=== PATIENT | female | born 1940 | race Caucasian/White ===

== ENCOUNTER 2019-03-28 12:25 | Inpatient (IN) ==
[2019-03-28 12:36] VITALS: BMI 23.6
--- NOTE | 2019-03-28 12:52 | DR.GENAD ---
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 SHE IS RUNNING FEVER. SHE IS COUGHING PRODUCTIVE WITH THICK SPUTUM. COUGH IS WORSE WHEN SHE IS LYING DOWN. PATIENT IS HAVING PLEURITIC CHEST PAIN 5/10, RADIATING TO THE BACK. PATIENR IS ON HOME OXYGEN 2L/M. Complaint/Symptoms Chief Complaint Doctors Comments: INCREASING SOB AND GENERALIZE WEAKNESS TIMES 3 WEEKS. Chief Complaint:: pt stated she has been short of breath and very weak for around [address] rodriguez this morning and they told her to come to our er Nurses notes reviewed Nurses Notes Review: Yes Source History Provided: Patient and Family Member Mode of Arrival Mode of Arrival: Ambulatory Timing Onset of Chief Complaint: 03/07/19 Duration Duration: Weeks Severity Severity: Moderate Modifying Factors Worsens:: LYING DOWN Improves:: SITTING UP. Associated Signs and Symptoms Associated Signs and Symptoms: WEAKNESS, ATAXIA. Other History Other History: HISTORY SCOLIOSIS. PMH PMH Past Medical History: Yes Past Medical History: Dyslipidemia and Hypothyroidism Past Surgical History: Yes Surgical History: Appendectomy, Cholecystectomy, Hysterectomy, Ortho Surgery and Thyroidectomy Family History History of Family Medical Conditions: No Social History Does patient currently use any type of tobacco product: No Have you used tobacco products in the last 12 months: No Type of Tobacco Use: None Does any household member use tobacco: No Alcohol Use: None Do you use any recreational Drugs:: No Lives With: Alone Lives Where: Home infectious screening In the last 2 months have you had wt loss of >10#?: NO Have you had fever, night sweats or hemotysis?: No Have you traveled outside the country in the last 6 months?: No Isolation: Standard ROS Review of Systems Constitutional: See HPI, Fever, Weakness, Fatigue and Loss of Appetite Eyes: No Symptoms Reported and See HPI; negative Eye Pain, Blurred Vision and Photophobia ENTM: See HPI, Ear Pain, Nose Discharge and Nose Congestion; negative Throat Pain Respiratoy: See HPI, Productive Cough, Short of Breath and Wheezing Cardiovascular: See HPI and Chest Pain; negative Edema and Palpitations Gastrointestinal/Abdominal: See HPI and Nausea; negative Abdominal Pain, Constipation, Diarrhea and Vomiting Genitourinary: No Symptoms Reported and See HPI; negative Dysuria, Frequency and Hematuria Neurological: See HPI, Weakness and Problems Walking (ATAXIA.); negative Headache and Dizziness Musculoskeletal: No Symptoms Reported and See HPI; negative Back Pain and Muscle Pain Integumentary: See HPI and Dryness; negative Change in Color, Rash and Juandice Hematologic/Lymphatic: No Symptoms Reported and See HPI; negative Easy Bleeding, Easy Bruising and Swollen Glands Endocrine: No Symptoms Reported, See HPI, Increased Thirst and Decreased Appetite; negative Increased Urine Psychiatric: No Symptoms Reported and See HPI All Other Systems: Reviewed and Negative PE Vital Signs Vitals: Temperature 97.7 F Pulse Rate [Left Brachial] 92 Pulse Rate 83 Respiratory Rate 20 Blood Pressure [Left Arm] 130/64 Blood Pressure 154/85 O2 Sat by Pulse Oximetry 94 General Limitations: No Limitations General Appearance: Alert and In Distress Head Head Exam: Normal Inspection, Atraumatic and Normocephalic Eyes Eye exam: Normal Appearance, PERRL and EOMI; negative Scleral Icterus and Conjunctival Injection ENT ENT Exam: Normal Exam, Normal Oropharynx and Normal External Ear Exam; negative TM's Normal Bilaterally External Ear Exam: Normal External Inspection; negative Mastoid Tenderness, Pain with Movement and External Tenderness TM/Canal Exam: Bilateral: Normal Nose Exam: negative Sinus Tenderness, Nasal Deviation and Septal Hematoma Mouth Exam: negative Lip Swelling and Tongue Swelling Throat Exam: Tonsillar Erythema; negative Tonsillomegaly and Tonsillar Exudate Neck Neck Exam: Normal Inspection and Trachea Midline; negative Tenderness and Lymphadenopathy Chest Chest Inspection: Normal Inspection and Symmetric Chest Wall Rise; negative Tenderness Respiratory Respiratory Exam: Respiratory Distress; negative Accessory Muscle Use and Chest Wall Tenderness Respiratory Exam: Bilateral: Wheezing and Bilateral: Rhonchi, Upper: Wheezing and Upper: Rhonchi and Lower: Wheezing and Lower: Rhonchi Abdominal Exam Abdominal Exam: Normal Inspection, Normal Bowel Sounds and Soft; negative Tende rness Extremities Extremities Exam: Normal Inspection, Full ROM and Normal Capillary Refill; negative Tenderness, Edema and Calf Tenderness Back Back Exam: Normal Inspection; negative Tenderness, (R) CVA Tenderness, (L) CVA Tenderness, Paraspinal Tenderness and Vertebral Tenderness Neurologic Neurological Exam: Alert, Oriented X3 and CN II-XII Intact; negative Motor Sensory Deficit Psychiatric Psychiatric Exam: Normal Affect and Normal Mood Skin Skin Exam: Warm, Dry, Intact and Normal Color MDM Additional Information Additional Information Obtained From: Family Differential Diagnosis Differential Diagnosis: PNEUMONIA, COPD EXACERBATION, BRONCHITIS, SCOLIOSIS WITH PULMONARY COMPRESS COURSE Treatment Treatment: SEE ORDERS. Consultation Consultation Comments: DISCUSS PATIENT WITH DR. ZHANG. HE WILL ADMIT PATIENT. Education/Counseling Education/Counseling: Patient and Family Educated On: Diagnosis ROR Labs Reviewed Laboratory Results Reviewed?: Yes Result Diagrams: 04/01/19 04:41 04/01/19 04:41 Laboratory: 03/28/19 13:40 Blood Blood Culture - Final 03/28/19 13:33 Blood Blood Culture - Final 03/28/19 15:10 Sputum - Expectorated Sputum Sputum Culture - Final 03/28/19 15:10 Sputum - Expectorated Sputum - Final WBC 9.0 X10^3/uL (3.6-10.0) 04/01/19 04:41 RBC 3.87 X10^6/uL (3.5-5.4) 04/01/19 04:41 Hgb 11.9 g/dL (12.0-16.0) L 04/01/19 04:41 Hct 36.1 % (36.0-47.0) 04/01/19 04:41 MCV 93.4 fL (80.0-100.0) 04/01/19 04:41 MCH 30.7 pg (27.0-34.0) 04/01/19 04:41 MCHC 32.9 g/dL (33.0-35.0) L 04/01/19 04:41 RDW 13.1 % (11.6-16.5) 04/01/19 04:41 Plt Count 111 X10^3/uL (150.0-450.0) L 04/01/19 04:41 MPV 11.9 fL (7.4-11.0) H 04/01/19 04:41 Neut % (Auto) 52.4 % (42.0-75.0) 04/01/19 04:41 Lymph % (Auto) 38.8 % (21.0-51.0) 04/01/19 04:41 [place] % (Auto) 6.9 % (0.0-13.0) 04/01/19 04:41 Eos % (Auto) 0.7 % (0.9-2.9) L 04/01/19 04:41 Baso % (Auto) 1.2 % (0.2-1.0) H 04/01/19 04:41 Neut # (Auto) 4.7 x10^3/uL (2.2-4.8) 04/01/19 04:41 Lymph # (Auto) 3.5 X10^3/uL (1.3-2.9) H 04/01/19 04:41 [place] # (Auto) 0.6 x10^3/uL (0.3-0.8) 04/01/19 04:41 Eos # (Auto) 0.1 x10^3/uL (0.0-0.2) 04/01/19 04:41 Baso # (Auto) 0.1 X10^3/uL (0.0-0.1) 04/01/19 04:41 Absolute Nucleated RBC 0.0 /100WBC 04/01/19 04:41 Sample Site Right radial 03/29/19 11:22 ABG pH 7.350 (7.35-7.45) 03/29/19 11:22 ABG pCO2 73.0 mmHg (35.0-45.0) H* 03/29/19 11:22 ABG pO2 82.0 mmHg (80.0-100.0) 03/29/19 11:22 ABG HCO3 40.3 mmol/L (22-26) H* 03/29/19 11:22 ABG O2 Saturation 95.0 % (90-100) 03/29/19 11:22 ABG Base Excess 11.8 mmol/L (-2.0-2.0) H 03/29/19 11:22 Eduardo Test Positive 03/29/19 11:22 A-a Gradient 26.0 mmHg 03/29/19 11:22 FiO2 28.0 03/29/19 11:22 Blood Gas Comments 03/29/19 11:22 Sodium 140 mmol/L (136-145) 04/01/19 04:41 Corrected Sodium TNP 04/01/19 04:41 Potassium 3.8 mmol/L (3.5-5.1) 04/01/19 04:41 Chloride 101 mmol/L (98-107) 04/01/19 04:41 Carbon Dioxide 36.3 mmol/L (21-32) H 04/01/19 04:41 BUN 18 mg/dL (7-18) 04/01/19 04:41 Creatinine 0.48 mg/dL (0.55-1.02) L 04/01/19 04:41 Est GFR (MDRD) Af Amer > 60 (>60) 04/01/19 04:41 Est GFR (MDRD) Non-Af > 60 (>60) 04/01/19 04:41 Glucose 97 mg/dL (65-99) 04/01/19 04:41 Calcium 7.4 mg/dL (8.5-10.1) L 04/01/19 04:41 Corrected Calcium 8.3 mg/dL (8.5-10.1) L 04/01/19 04:41 Magnesium 2.0 mg/dL (1.7-2.9) 04/01/19 04:41 Total Bilirubin 0.20 mg/dL (0.2-1.0) 04/01/19 04:41 AST 14 Units/L (15-37) L 04/01/19 04:41 ALT 14 Units/L (12-78) 04/01/19 04:41 Alkaline Phosphatase 35 Units/L (46-116) L 04/01/19 04:41 Creatine Kinase 43 Units/L (26-192) 03/30/19 02:20 CK-MB (CK-2) 1.1 ng/mL (0-4.0) 03/30/19 02:20 CK/CKMB % Calc 2.6 % (<4) 03/30/19 02:20 Troponin I < 0.02 ng/mL (0-1.5) 03/30/19 02:20 Total Protein 6.3 g/dL (6.4-8.2) L 04/01/19 04:41 Albumin 2.9 g/dL (3.4-5.0) L 04/01/19 04:41 Globulin 3.4 g/dL (2.5-4.5) 04/01/19 04:41 Albumin/Globulin Ratio 0.9 Ratio (1.1-2.1) L 04/01/19 04:41 Specimen Type Clean catch urine 03/28/19 14:00 Urine Color Yellow (YELLOW) 03/28/19 14:00 Urine Appearance Clear (CLEAR) 03/28/19 14:00 Urine pH 6.5 (5.0 - 8.0) 03/28/19 14:00 Ur Specific [place] 1.015 (1.000-1.030) 03/28/19 14:00 Urine Protein Negative (NEGATIVE) 03/28/19 14:00 Urine Glucose (UA) Negative (NEGATIVE) 03/28/19 14:00 Urine Ketones Negative (NEGATIVE) 03/28/19 14:00 Urine Occult Blood Negative (NEGATIVE) 03/28/19 14:00 Urine Nitrite Negative (NEGATIVE) 03/28/19 14:00 Urine Bilirubin Negative (NEGATIVE) 03/28/19 14:00 Urine Urobilinogen Normal (NORMAL) 03/28/19 14:00 Ur Leukocyte Esterase 1+ (NEGATIVE) 03/28/19 14:00 Urine RBC None seen /HPF (0-3) 03/28/19 14:00 Urine WBC 0-2 /HPF (0-5) 03/28/19 14:00 Ur Squamous Epith Cells Few /HPF (NEGATIVE) 03/28/19 14:00 Urine Bacteria Negative /HPF (NEGATIVE) 03/28/19 14:00 Ur Culture Indicated? No/not indicated 03/28/19 14:00 XRAY XRAY Findings: REPORT NOTED AND DISCUSS WITH PATIENT AND HER SON. EKG Rate: 80 Elfrida: RAD Rhythm: NSR and PVCs Hypertrophy: LAE ST: Nonsp Opioid Opioid Risk Tool Age (Yonatan box if 16-45): No Total: 0 Total Score Risk Category: Low Risk Copyright: [facility] predicting aberrant behaviors Diagnosis Discharge Problem: Acute respiratory distress LLL pneumonia Qualifiers: Pneumonia type: due to unspecified organism Qualified Code(s): J18.1 - Lobar pn eumonia, unspecified organism Instructions Instructions: Incentive Spirometer How to Use a Nebulizer, Adult Home Oxygen Use, Adult Acute Respiratory Failure, Adult Community-Acquired Pneumonia, Adult, [id number]
[2019-03-28 13:51] LABS: BASOPHILS # (AUTO) 0.1 X10^3/uL (0.0-0.1); BASOPHILS % (AUTO) 0.8 % (0.2-1.0); EOSINOPHILS # (AUTO) 0.1 x10^3/uL (0.0-0.2); EOSINOPHILS % (AUTO) 1.2 % (0.9-2.9); HEMATOCRIT 41.7 % (36.0-47.0); HEMOGLOBIN 13.8 g/dL (12.0-16.0); LYMPHOCYTES # (AUTO) 3.3 X10^3/uL (1.3-2.9); LYMPHOCYTES % (AUTO) 37.8 % (21.0-51.0); MEAN CORPUSCULAR HEMOGLOBIN 30.8 pg (27.0-34.0); MEAN CORPUSCULAR HGB CONC 33.1 g/dL (33.0-35.0); MEAN CORPUSCULAR VOLUME 93.1 fL (80.0-100.0); MEAN PLATELET VOLUME 10.5 fL (7.4-11.0); MONOCYTES # (AUTO) 0.6 x10^3/uL (0.3-0.8); MONOCYTES % (AUTO) 6.7 % (0.0-13.0); NEUTROPHILS # (AUTO) 4.6 x10^3/uL (2.2-4.8); NEUTROPHILS % (AUTO) 53.5 % (42.0-75.0); PLATELET COUNT 142 X10^3/uL (150.0-450.0); RED BLOOD COUNT 4.48 X10^6/uL (3.5-5.4); RED CELL DISTRIBUTION WIDTH 12.9 % (11.6-16.5); WHITE BLOOD COUNT 8.6 X10^3/uL (3.6-10.0)
--- NOTE | 2019-03-28 14:03 | RAD ---
HISTORY: Ataxia, shortness of breath. Prior history of hypothyroidism. Study: Single-view chest Comparison: No priors Findings: Is severe thoracolumbar scoliosis present. 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 Trachea is midline. There is cardiomegaly with atherosclerotic calcification uncoiling the aortic arch. Right lung is clear. There is left-sided pleural effusion with atelectasis or infiltrate in the left lower lobe. IMPRESSION: Cardiomegaly with atelectasis or infiltrate in the left lower lobe. There is a left-sided pleural effusion. Reported By:
[2019-03-28 14:07] LABS: BLOOD UREA NITROGEN 18 mg/dL (7-18); CARBON DIOXIDE 33.7 mmol/L (21-32); CHLORIDE 101 mmol/L (98-107); CREATININE 0.52 mg/dL (0.55-1.02); SODIUM 140 mmol/L (136-145); TROPONIN I < 0.02 ng/mL (0-1.5); eGFR NON BLACK RACES > 60 (>60)
[2019-03-28 14:11] LABS: ALANINE AMINOTRANSFERASE 8 Units/L (12-78); ALBUMIN 3.7 g/dL (3.4-5.0); ALKALINE PHOSPHATASE 47 Units/L (46-116); ASPARTATE AMINO TRANSFERASE 18 Units/L (15-37); CKMB % 3.5 % (<4); CREATINE KINASE 29 Units/L (26-192); CREATINE KINASE MB < 1.0 ng/mL (0-4.0); TOTAL PROTEIN 7.8 g/dL (6.4-8.2)
[2019-03-28 14:27] LABS: BILIRUBIN,URINE NEGATIVE (NEGATIVE); BLOOD/HEMOGLOBIN,URINE NEGATIVE (NEGATIVE); GLUCOSE, URINE NEGATIVE (NEGATIVE); KETONES,URINE NEGATIVE (NEGATIVE); LEUKOCYTE ESTERASE ,URINE 1+ (NEGATIVE); NITRITES,URINE NEGATIVE (NEGATIVE); PH,URINE 6.5 (5.0 - 8.0); PROTEIN,URINE NEGATIVE (NEGATIVE); UROBILINOGEN,URINE NORMAL (NORMAL)
[2019-03-28] MEDS ORDERED: ROCEPHIN VIAL 1 GRAM IVP ONE (14:30)
--- NOTE | 2019-03-28 14:31 | CT ---
CT brain without contrast Indication: Ataxia with shortness of breath Comparison: None available Technique: Multiple axial images of the brain were obtained from the skull base to the vertex without administration of IV contrast. Dose reduction techniques including automated exposure control (AEC) and adjustment of mA and kV were utilized. Findings: No acute intraparenchymal hemorrhage or mass can be identified. No extra-axial fluid collections are seen. No alteration in the attenuation of the brain parenchyma can be identified to suggest acute or subacute ischemic change. The ventricular system is symmetric and nondilated. The extracranial structures are grossly unremarkable. IMPRESSION: 1. No acute intracranial process is identified. Reported By:
[2019-03-28] MEDS ORDERED: SALINE 3% 15 ML NEB TX ONE (14:35)
[2019-03-28 14:36] LABS: APPEARANCE,URINE CLEAR (CLEAR); BACTERIA,URINE NEGATIVE /HPF (NEGATIVE); COLOR,URINE YELLOW (YELLOW); RBC,URINE NONE SEEN /HPF (0-3); SQUAMOUS EPITHELIAL CELL,UR FEW /HPF (NEGATIVE)
[2019-03-28] MEDS ORDERED: SALINE 3% 15 ML NEB TX NEB ONE (14:40)
[2019-03-28] MEDS ORDERED: ROCEPHIN VIAL 1 GRAM ONE (14:46)
[2019-03-28] MEDS: XOPENEX 1.25 MG/3 ML NEBULE NEB SCH (18:40)
[2019-03-28] MEDS ORDERED: DESONIDE TP SCH (21:00)
[2019-03-28] MEDS: ASTELIN NASAL SPRAY ENOSTRIL SCH (21:49)
[2019-03-28] MEDS: NORCO 5/325 MG TAB PO SCH (21:50)
[2019-03-28] MEDS: PROTONIX TAB 40 MG PO SCH (21:52)
[2019-03-28] MEDS ORDERED: NS 500 ML IV 500 ML ONE (21:59)
[2019-03-28] MEDS: LEVAQUIN PREMIX IV 500 MG 500 MG/100 ML BAG IV SCH (22:00)
[2019-03-29] MEDS: XOPENEX 1.25 MG/3 ML NEBULE NEB SCH ×4 (01:25→17:18)
[2019-03-29 05:20] LABS: BASOPHILS # (AUTO) 0.1 X10^3/uL (0.0-0.1); BASOPHILS % (AUTO) 0.8 % (0.2-1.0); EOSINOPHILS # (AUTO) 0.2 x10^3/uL (0.0-0.2); EOSINOPHILS % (AUTO) 2.8 % (0.9-2.9); HEMATOCRIT 38.9 % (36.0-47.0); HEMOGLOBIN 12.9 g/dL (12.0-16.0); LYMPHOCYTES % (AUTO) 38.9 % (21.0-51.0); MEAN CORPUSCULAR HEMOGLOBIN 30.9 pg (27.0-34.0); MEAN CORPUSCULAR HGB CONC 33.3 g/dL (33.0-35.0); MEAN CORPUSCULAR VOLUME 92.7 fL (80.0-100.0); MEAN PLATELET VOLUME 11.8 fL (7.4-11.0); MONOCYTES # (AUTO) 0.7 x10^3/uL (0.3-0.8); MONOCYTES % (AUTO) 8.7 % (0.0-13.0); NEUTROPHILS # (AUTO) 3.8 x10^3/uL (2.2-4.8); NEUTROPHILS % (AUTO) 48.8 % (42.0-75.0); PLATELET COUNT 128 X10^3/uL (150.0-450.0); RED BLOOD COUNT 4.19 X10^6/uL (3.5-5.4); RED CELL DISTRIBUTION WIDTH 12.8 % (11.6-16.5); WHITE BLOOD COUNT 7.8 X10^3/uL (3.6-10.0)
[2019-03-29 05:21] LABS: ALANINE AMINOTRANSFERASE 6 Units/L (12-78); ALBUMIN 3.2 g/dL (3.4-5.0); ALKALINE PHOSPHATASE 39 Units/L (46-116); ASPARTATE AMINO TRANSFERASE 15 Units/L (15-37); BLOOD UREA NITROGEN 17 mg/dL (7-18); CALCIUM 8.1 mg/dL (8.5-10.1); CARBON DIOXIDE 33.5 mmol/L (21-32); CHLORIDE 100 mmol/L (98-107); COR CA(FOR HYPOALB) 8.7 mg/dL (8.5-10.1); CREATININE 0.54 mg/dL (0.55-1.02); SODIUM 140 mmol/L (136-145); eGFR NON BLACK RACES > 60 (>60)
[2019-03-29] MEDS ORDERED: ASTELIN NASAL SPRAY ONE (08:14)
[2019-03-29] MEDS: ROCEPHIN VIAL 1 GRAM IVP SCH (08:32)
[2019-03-29] MEDS: NORCO 5/325 MG TAB PO SCH ×2 (08:32→21:39)
[2019-03-29] MEDS: ZOFRAN TAB 4 MG PO SCH (08:32)
[2019-03-29] MEDS: ASTELIN NASAL SPRAY ENOSTRIL SCH ×2 (08:33→21:41)
[2019-03-29] MEDS ORDERED: LASIX IVP SCH (10:00)
[2019-03-29] MEDS: NS 1000 ML 1,000 ML IV SCH (11:22)
[2019-03-29 11:28] LABS: ABG BASE EXCESS 11.8 mmol/L (-2.0-2.0)
[2019-03-29 11:30] LABS: ABG ALLEN TEST POSITIVE; ABG HCO3 40.3 mmol/L (22-26)
--- NOTE | 2019-03-29 13:40 | DR.H&P ---
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 SHE IS RUNNING FEVER. SHE IS COUGHING PRODUCTIVE WITH THICK SPUTUM. COUGH IS WORSE WHEN SHE IS LYING DOWN. PATIENT IS HAVING PLEURITIC CHEST PAIN 5/10, RADIATING TO THE BACK. PATIENT IS ON HOME OXYGEN 2L/M. - Past Medical History Past Medical History: CVA (2017), Dyslipidemia, Hypothyroidism Additional Medical History: bronchiectasis - Past Surgical History Surgical History: Appendectomy, Cholecystectomy, Hysterectomy - Social History Does patient currently use any type of tobacco product: No Have you used tobacco products in the last 12 months: No Type of Tobacco Use: None Does any household member use tobacco: No Alcohol Use: None Drug Use: None - Medications Home Medications: No Known Drug Allergies Allergy (Verified 03/28/19 12:26) CONTINUE taking the following medications azelastine 2 spray INTRANASAL BID 03/28/19 [History] desonide 1 applic TOPICAL HS 03/28/19 [History] doxycycline hyclate 100 mg PO BID 03/28/19 [History] hydrocodone-acetaminophen 1 tab PO BID 03/28/19 [History] ketoconazole 1 applic TOPICAL DAILY 03/28/19 [History] levothyroxine 25 mcg PO DAILY 03/28/19 [History] metronidazole 1 applic TOPICAL HS 03/28/19 [History] ondansetron HCl 4 mg PO DAILY 03/28/19 [History] pantoprazole 40 mg PO HS 03/28/19 [History] - Review of Systems Constitutional: Fever, Weakness Eyes: No Symptoms Reported ENT: No Symptoms Reported Respiratory: Cough, Shortness of Breath, SOB with Excertion, Pleuritic Pain, Wheezing Cardiovascular: No Symptoms Reported. denies: Edema Gastrointestinal: No Symptoms Reported Genitourinary: No Symptoms Reported Musculoskeletal: Back Pain Skin: No Symptoms Reported Neurological: No Symptoms Reported - Physical Exam Vital Signs: Temperature 97.9 F Pulse Rate [Left Brachial] 113 Pulse Rate 81 Respiratory Rate 14 Blood Pressure [Left Arm] 134/79 Blood Pressure 154/85 O2 Sat by Pulse Oximetry 96 Oriented: Normal Eyes: Normal Ear: Normal Nose: Normal Throat: Normal Respiratory: RLL Diminished, LML Diminished, LLL Diminished, LLL Rub Cardiovascular: Normal. negative: Edema : Normal Auscultation: Bowel Sounds: Normal Palpation: Normal Tenderness: Normal Skin: Decreased Turgur Musculoskeletal: Back:Thoracic, Back:Lumbar, Tender, Deformity Psychiatric: Anxiety Affect: Anxious Speech Pattern: Clear, Appropriate - Assessment/Plan (1) Acute respiratory distress Status: Acute Plan: ADMIT, CE AND EKG ON ADMISSION. CXR ON ADMISSION, SUPPLEMENTAL O2, RESP CONSULT. IV ATBX THERAPY, GENTLE IV HYDRATION. VERIFY HOME MEDICATION, BP AND CONTINOUS CARDIC MONITORING. SPUTUM CULTURE, BLOOD CULTURE (2) LLL pneumonia Qualifiers: Pneumonia type: due to unspecified organism Qualified Code(s): J18.1 - Lobar pneumonia, unspecified organism Status: Acute (3) Thoracolumbar back pain Status: Acute (4) Scoliosis Status: Acute (5) CVD (cerebrovascular disease) Status: Acute - Allergies Allergies/Adverse Reactions: Allergies Allergy/AdvReac Type Severity Reaction Status Date / Time No Known Drug Allergies Allergy Verified 03/28/19 12:26
--- NOTE | 2019-03-29 13:46 | PCM.PROG ---
Progress Note - Progress Note for Day of Date of Exam: 03/29/19 - Subjective Subjective: 79 WF ER ADMISSION ON 03/28 WITH FEVER AND RESPIRATORY DISTRESS, CHEST PAIN WITH CXR CONFIRMING PNEUMONIA. PT WAS STARTED ON IV ANTIBIOTICS. PT IS ON SUPPLEMENTAL O2 WITH CONTINUED SOB AT REST. ABG ORDERED FOR THIS AND CT CHEST WITH CONTRAST. PT ENCOURAGED TO USE IS, PULMONARY TOILETING. HOME MEDICATIONS REVIEWED AND RESUMED, IV SOLU MEDROL STARTED. LABS AND XRAYS REIVEWED WITH PT AND HER FAMILY - Past Medical Family Social History Past Med/Fam/Surg Hx: No changes since H&P Allergies: Allergies No Known Drug Allergies Allergy (Verified 03/28/19 12:26) - Review of Systems ROS: No change since H&P - Vital Signs and I&O's Vital Signs: Temperature 97.9 F Pulse Rate [Left Brachial] 113 Pulse Rate 81 Respiratory Rate 14 Blood Pressure [Left Arm] 134/79 Blood Pressure 154/85 O2 Sat by Pulse Oximetry 96 Intake and Output: Intake & Output 03/27/19 03/28/19 03/29/19 03/30/19 11:59 11:59 11:59 11:59 Intake Total 370 / 370 Balance 370 / 370 - Physical Exam Oriented: Normal Eyes: Normal Ear: Normal Nose: Normal Throat: Normal Respiratory: Diminished, Wheezes Cardiovascular: Normal. negative: Edema : Normal Auscultation: Bowel Sounds: Normal Tenderness: Normal Skin: Decreased Turgur Musculoskeletal: Back:Thoracic, Back:Lumbar, Tender, Deformity Psychiatric: Anxiety Affect: Anxious Speech Pattern: Clear, Appropriate - Laboratory and Diagnostics Result Diagrams: 03/29/19 04:42 03/29/19 04:42 Labs: 03/28/19 15:10 Sputum - Expectorated Sputum Sputum Culture - Preliminary 03/28/19 15:10 Sputum - Expectorated Sputum - Final Laboratory WBC 7.8 X10^3/uL (3.6-10.0) 03/29/19 04:42 RBC 4.19 X10^6/uL (3.5-5.4) 03/29/19 04:42 Hgb 12.9 g/dL (12.0-16.0) 03/29/19 04:42 Hct 38.9 % (36.0-47.0) 03/29/19 04:42 MCV 92.7 fL (80.0-100.0) 03/29/19 04:42 MCH 30.9 pg (27.0-34.0) 03/29/19 04:42 MCHC 33.3 g/dL (33.0-35.0) 03/29/19 04:42 RDW 12.8 % (11.6-16.5) 03/29/19 04:42 Plt Count 128 X10^3/uL (150.0-450.0) L 03/29/19 04:42 MPV 11.8 fL (7.4-11.0) H 03/29/19 04:42 Neut % (Auto) 48.8 % (42.0-75.0) 03/29/19 04:42 Lymph % (Auto) 38.9 % (21.0-51.0) 03/29/19 04:42 [place] % (Auto) 8.7 % (0.0-13.0) 03/29/19 04:42 Eos % (Auto) 2.8 % (0.9-2.9) 03/29/19 04:42 Baso % (Auto) 0.8 % (0.2-1.0) 03/29/19 04:42 Neut # (Auto) 3.8 x10^3/uL (2.2-4.8) 03/29/19 04:42 Lymph # (Auto) 3.0 X10^3/uL (1.3-2.9) H 03/29/19 04:42 [place] # (Auto) 0.7 x10^3/uL (0.3-0.8) 03/29/19 04:42 Eos # (Auto) 0.2 x10^3/uL (0.0-0.2) 03/29/19 04:42 Baso # (Auto) 0.1 X10^3/uL (0.0-0.1) 03/29/19 04:42 Absolute Nucleated RBC 0.0 /100WBC 03/29/19 04:42 Sample Site Right radial 03/29/19 11:22 ABG pH 7.350 (7.35-7.45) 03/29/19 11:22 ABG pCO2 73.0 mmHg (35.0-45.0) H* 03/29/19 11:22 ABG pO2 82.0 mmHg (80.0-100.0) 03/29/19 11:22 ABG HCO3 40.3 mmol/L (22-26) H* 03/29/19 11:22 ABG O2 Saturation 95.0 % (90-100) 03/29/19 11:22 ABG Base Excess 11.8 mmol/L (-2.0-2.0) H 03/29/19 11:22 Eduardo Test Positive 03/29/19 11:22 A-a Gradient 26.0 mmHg 03/29/19 11:22 FiO2 28.0 03/29/19 11:22 Blood Gas Comments 03/29/19 11:22 Sodium 140 mmol/L (136-145) 03/29/19 04:42 Corrected Sodium TNP 03/29/19 04:42 Potassium 4.0 mmol/L (3.5-5.1) 03/29/19 04:42 Chloride 100 mmol/L (98-107) 03/29/19 04:42 Carbon Dioxide 33.5 mmol/L (21-32) H 03/29/19 04:42 BUN 17 mg/dL (7-18) 03/29/19 04:42 Creatinine 0.54 mg/dL (0.55-1.02) L 03/29/19 04:42 Est GFR (MDRD) Af Amer > 60 (>60) 03/29/19 04:42 Est GFR (MDRD) Non-Af > 60 (>60) 03/29/19 04:42 Glucose 104 mg/dL (65-99) H 03/29/19 04:42 Calcium 8.1 mg/dL (8.5-10.1) L 03/29/19 04:42 Corrected Calcium 8.7 mg/dL (8.5-10.1) 03/29/19 04:42 Total Bilirubin 0.40 mg/dL (0.2-1.0) 03/29/19 04:42 AST 15 Units/L (15-37) 03/29/19 04:42 ALT 6 Units/L (12-78) L 03/29/19 04:42 Alkaline Phosphatase 39 Units/L (46-116) L 03/29/19 04:42 Creatine Kinase 29 Units/L (26-192) 03/28/19 13:33 CK-MB (CK-2) < 1.0 ng/mL (0-4.0) 03/28/19 13:33 CK/CKMB % Calc 3.5 % (<4) 03/28/19 13:33 Troponin I < 0.02 ng/mL (0-1.5) 03/28/19 13:33 Total Protein 7.0 g/dL (6.4-8.2) 03/29/19 04:42 Albumin 3.2 g/dL (3.4-5.0) L 03/29/19 04:42 Globulin 3.8 g/dL (2.5-4.5) 03/29/19 04:42 Albumin/Globulin Ratio 0.8 Ratio (1.1-2.1) L 03/29/19 04:42 Specimen Type Clean catch urine 03/28/19 14:00 Urine Color Yellow (YELLOW) 03/28/19 14:00 Urine Appearance Clear (CLEAR) 03/28/19 14:00 Urine pH 6.5 (5.0 - 8.0) 03/28/19 14:00 Ur Specific [place] 1.015 (1.000-1.030) 03/28/19 14:00 Urine Protein Negative (NEGATIVE) 03/28/19 14:00 Urine Glucose (UA) Negative (NEGATIVE) 03/28/19 14:00 Urine Ketones Negative (NEGATIVE) 03/28/19 14:00 Urine Occult Blood Negative (NEGATIVE) 03/28/19 14:00 Urine Nitrite Negative (NEGATIVE) 03/28/19 14:00 Urine Bilirubin Negative (NEGATIVE) 03/28/19 14:00 Urine Urobilinogen Normal (NORMAL) 03/28/19 14:00 Ur Leukocyte Esterase 1+ (NEGATIVE) 03/28/19 14:00 Urine RBC None seen /HPF (0-3) 03/28/19 14:00 Urine WBC 0-2 /HPF (0-5) 03/28/19 14:00 Ur Squamous Epith Cells Few /HPF (NEGATIVE) 03/28/19 14:00 Urine Bacteria Negative /HPF (NEGATIVE) 03/28/19 14:00 Ur Culture Indicated? No/not indicated 03/28/19 14:00 - Plan (1) Acute respiratory distress Status: Acute Plan: CE AND EKG ON ADMISSION, REPEAT TODAY. CXR ON ADMISSION, CT CHEST TODAY. SUPPLEMENTAL O2, RESP CONSULT. IV ATBX THERAPY, GENTLE IV HYDRATION. VERIFY HOME MEDICATION, BP AND CONTINOUS CARDIC MONITORING. SPUTUM CULTURE, BLOOD CULTURE (2) LLL pneumonia Status: Acute Qualifiers: Pneumonia type: due to unspecified organism Qualified Code(s): J18.1 - Lobar pneumonia, unspecified organism (3) Thoracolumbar back pain Status: Acute (4) Scoliosis Status: Acute (5) CVD (cerebrovascular disease) Status: Acute
[2019-03-29] MEDS ORDERED: NS 100 ML IV + SPIKE MINIBAG* 100 ML ONE (13:51)
[2019-03-29 14:14] LABS: CKMB % 2.8 % (<4); CREATINE KINASE 36 Units/L (26-192); CREATINE KINASE MB < 1.0 ng/mL (0-4.0); MAGNESIUM 1.6 mg/dL (1.7-2.9); TROPONIN I < 0.02 ng/mL (0-1.5)
[2019-03-29] MEDS ORDERED: MAGNESIUM SULFATE 1 GRAM/100 mL PREMIX 2 G/200 ML BAG IV ONE (14:52)
[2019-03-29] MEDS: SOLU-Medrol 125 MG VIAL IVP SCH ×2 (14:54→21:40)
[2019-03-29] MEDS: MAGNESIUM SULFATE 1 GRAM/100 mL PREMIX 1 GM/100 ML BAG IV PRN ×2 (14:54→18:11)
--- NOTE | 2019-03-29 14:59 | CT ---
HISTORY: Respiratory distress, left lower lobe pneumonia Study: CT chest with contrast Comparison: Radiograph 03/28/2019 Technique: Multiple axial images of the chest were obtained from the thoracic inlet to the upper abdomen after the administration of IV contrast. Dose reduction techniques including Automated Exposure Control (AEC) and adjustment of mA and kV were utilized. Findings: There is severe thoracic dextroscoliosis with single Crawley carmelita on the left that is partially visualized on this scan. There is associated rib deformity associated with the scoliosis. There is a large hiatal hernia with partial intrathoracic stomach. There is bibasilar subsegmental atelectasis, worse on the left. No effusion or pneumothorax identified. Airways are patent. There is mild cardiomegaly. There is calcified plaque within the aorta. No acute findings identified in the upper abdomen. Gallbladder is removed. IMPRESSION: 1. Bibasilar subsegmental atelectasis greater on the left. No effusion or pneumothorax identified. 2. Severe thoracic dextroscoliosis. 3. Mild cardiomegaly. Reported By:
[2019-03-29] MEDS: SYNTHROID 25 mcg TAB PO SCH (15:42)
[2019-03-29 20:13] LABS: CKMB % 2.6 % (<4); CREATINE KINASE 39 Units/L (26-192); CREATINE KINASE MB < 1.0 ng/mL (0-4.0); TROPONIN I < 0.02 ng/mL (0-1.5)
[2019-03-29] MEDS: PROTONIX TAB 40 MG PO SCH (21:38)
[2019-03-29] MEDS: LEVAQUIN PREMIX IV 500 MG 500 MG/100 ML BAG IV SCH (21:40)
[2019-03-30 02:31] LABS: BASOPHILS % (AUTO) 0.2 % (0.2-1.0); HEMATOCRIT 40.8 % (36.0-47.0); HEMOGLOBIN 13.5 g/dL (12.0-16.0); LYMPHOCYTES # (AUTO) 1.5 X10^3/uL (1.3-2.9); LYMPHOCYTES % (AUTO) 22.3 % (21.0-51.0); MEAN CORPUSCULAR HEMOGLOBIN 30.6 pg (27.0-34.0); MEAN CORPUSCULAR VOLUME 92.8 fL (80.0-100.0); MEAN PLATELET VOLUME 10.7 fL (7.4-11.0); MONOCYTES # (AUTO) 0.1 x10^3/uL (0.3-0.8); MONOCYTES % (AUTO) 0.9 % (0.0-13.0); NEUTROPHILS # (AUTO) 5.1 x10^3/uL (2.2-4.8); NEUTROPHILS % (AUTO) 76.6 % (42.0-75.0); PLATELET COUNT 137 X10^3/uL (150.0-450.0); RED CELL DISTRIBUTION WIDTH 12.6 % (11.6-16.5); WHITE BLOOD COUNT 6.6 X10^3/uL (3.6-10.0)
[2019-03-30 02:44] LABS: ALANINE AMINOTRANSFERASE 9 Units/L (12-78); ALBUMIN 3.5 g/dL (3.4-5.0); ALKALINE PHOSPHATASE 43 Units/L (46-116); ASPARTATE AMINO TRANSFERASE 15 Units/L (15-37); BLOOD UREA NITROGEN 19 mg/dL (7-18); CALCIUM 7.9 mg/dL (8.5-10.1); CARBON DIOXIDE 34.7 mmol/L (21-32); CHLORIDE 98 mmol/L (98-107); COR NA(FOR HYPERGLY) 138 mmol/L (136-145); CREATININE 0.72 mg/dL (0.55-1.02); MAGNESIUM 2.3 mg/dL (1.7-2.9); SODIUM 136 mmol/L (136-145); TOTAL PROTEIN 7.7 g/dL (6.4-8.2); eGFR NON BLACK RACES > 60 (>60)
[2019-03-30 02:56] LABS: CKMB % 2.6 % (<4); CREATINE KINASE 43 Units/L (26-192); CREATINE KINASE MB 1.1 ng/mL (0-4.0); TROPONIN I < 0.02 ng/mL (0-1.5)
[2019-03-30] MEDS: XOPENEX 1.25 MG/3 ML NEBULE NEB SCH ×5 (03:18→19:14)
[2019-03-30] MEDS: PULMICORT NEB TX 0.5 MG NEB SCH ×4 (03:18→20:09)
[2019-03-30] MEDS: SOLU-Medrol 125 MG VIAL IVP SCH (05:56)
[2019-03-30] MEDS: NORCO 5/325 MG TAB PO SCH ×2 (09:38→21:00)
[2019-03-30] MEDS: ROCEPHIN VIAL 1 GRAM IVP SCH (09:39)
[2019-03-30] MEDS: ASTELIN NASAL SPRAY ENOSTRIL SCH ×2 (09:39→21:00)
[2019-03-30] MEDS: ZOFRAN TAB 4 MG PO SCH (09:39)
[2019-03-30] MEDS ORDERED: PROTONIX TAB 40 MG ONE (09:46)
[2019-03-30] MEDS: PROTONIX TAB 40 MG PO SCH (09:46)
[2019-03-30] MEDS: NS 1000 ML 1,000 ML IV SCH (10:52)
[2019-03-30] MEDS: SYNTHROID 25 mcg TAB PO SCH (16:56)
[2019-03-30] MEDS: LEVAQUIN PREMIX IV 500 MG 500 MG/100 ML BAG IV SCH (21:00)
[2019-03-31] MEDS: XOPENEX 1.25 MG/3 ML NEBULE NEB SCH ×4 (00:17→16:30)
[2019-03-31 05:19] LABS: BASOPHILS # (AUTO) 0.2 X10^3/uL (0.0-0.1); LYMPHOCYTES # (AUTO) 2.7 X10^3/uL (1.3-2.9); LYMPHOCYTES % (AUTO) 16.2 % (21.0-51.0); MEAN CORPUSCULAR HEMOGLOBIN 30.3 pg (27.0-34.0); MEAN CORPUSCULAR HGB CONC 32.4 g/dL (33.0-35.0); MEAN CORPUSCULAR VOLUME 93.6 fL (80.0-100.0); MEAN PLATELET VOLUME 12.3 fL (7.4-11.0); MONOCYTES # (AUTO) 0.9 x10^3/uL (0.3-0.8); MONOCYTES % (AUTO) 5.6 % (0.0-13.0); NEUTROPHILS # (AUTO) 12.7 x10^3/uL (2.2-4.8); NEUTROPHILS % (AUTO) 77.2 % (42.0-75.0); PLATELET COUNT 128 X10^3/uL (150.0-450.0); RED BLOOD COUNT 3.96 X10^6/uL (3.5-5.4)
[2019-03-31 05:26] LABS: ALANINE AMINOTRANSFERASE 11 Units/L (12-78); ALBUMIN 3.2 g/dL (3.4-5.0); ALKALINE PHOSPHATASE 35 Units/L (46-116); ASPARTATE AMINO TRANSFERASE 13 Units/L (15-37); BLOOD UREA NITROGEN 20 mg/dL (7-18); CALCIUM 7.9 mg/dL (8.5-10.1); CARBON DIOXIDE 33.6 mmol/L (21-32); CHLORIDE 101 mmol/L (98-107); COR CA(FOR HYPOALB) 8.5 mg/dL (8.5-10.1); MAGNESIUM 2.2 mg/dL (1.7-2.9); SODIUM 139 mmol/L (136-145); TOTAL PROTEIN 6.7 g/dL (6.4-8.2); eGFR NON BLACK RACES > 60 (>60)
[2019-03-31 06:01] LABS: WHITE BLOOD COUNT 16.4 X10^3/uL (3.6-10.0)
[2019-03-31] MEDS: NS 1000 ML 1,000 ML IV SCH ×2 (06:28→11:12)
[2019-03-31] MEDS: PULMICORT NEB TX 0.5 MG NEB SCH ×2 (08:20→20:32)
[2019-03-31] MEDS: ROCEPHIN VIAL 1 GRAM IVP SCH (08:22)
[2019-03-31] MEDS: PROTONIX TAB 40 MG PO SCH (08:23)
[2019-03-31] MEDS: NORCO 5/325 MG TAB PO SCH ×3 (08:23→20:42)
[2019-03-31] MEDS: ZOFRAN TAB 4 MG PO SCH ×2 (08:24→08:58)
[2019-03-31] MEDS: ASTELIN NASAL SPRAY ENOSTRIL SCH ×2 (08:24→20:52)
[2019-03-31] MEDS ORDERED: PHARMACY CONSULT - DOSE _____ XX SCH (10:00)
[2019-03-31] MEDS ORDERED: MILK OF MAGNESIA PO PRN (10:05)
[2019-03-31] MEDS ORDERED: COLACE CAP 100 MG PO PRN (10:05)
[2019-03-31] MEDS: LOVENOX INJ 40 MG SYR SC SCH (13:51)
--- NOTE | 2019-03-31 14:34 | RAD ---
HISTORY: Pneumonia. Study: Two-view chest Comparison: 03/28/2019. CT scan chest done 03/29/2019. Findings: A single left-sided Crawley rods present. Severe thoracolumbar scoliosis is again seen. Trachea is midline. Heart size is normal. There is atherosclerotic calcification and uncoiling of arch. Improved aeration is noted with still some atelectasis or infiltrate in the left lung base. Both costophrenic angles are blunted, but no effusion was noted on the CT in the findings represent chronic pleural thickening in these areas. Large hiatal hernia was seen on the left at chest CT. This is not well delineated radiographically. IMPRESSION: Improved aeration with still some atelectasis or infiltrate in the left lung base. Reported By:
[2019-03-31] MEDS: SYNTHROID 25 mcg TAB PO SCH (16:45)
[2019-03-31] MEDS: LEVAQUIN PREMIX IV 500 MG 500 MG/100 ML BAG IV SCH (20:52)
[2019-04-01] MEDS: XOPENEX 1.25 MG/3 ML NEBULE NEB SCH ×3 (00:49→12:13)
[2019-04-01 05:28] LABS: BASOPHILS # (AUTO) 0.1 X10^3/uL (0.0-0.1); BASOPHILS % (AUTO) 1.2 % (0.2-1.0); EOSINOPHILS # (AUTO) 0.1 x10^3/uL (0.0-0.2); EOSINOPHILS % (AUTO) 0.7 % (0.9-2.9); HEMATOCRIT 36.1 % (36.0-47.0); HEMOGLOBIN 11.9 g/dL (12.0-16.0); LYMPHOCYTES # (AUTO) 3.5 X10^3/uL (1.3-2.9); LYMPHOCYTES % (AUTO) 38.8 % (21.0-51.0); MEAN CORPUSCULAR HEMOGLOBIN 30.7 pg (27.0-34.0); MEAN CORPUSCULAR HGB CONC 32.9 g/dL (33.0-35.0); MEAN CORPUSCULAR VOLUME 93.4 fL (80.0-100.0); MEAN PLATELET VOLUME 11.9 fL (7.4-11.0); MONOCYTES # (AUTO) 0.6 x10^3/uL (0.3-0.8); MONOCYTES % (AUTO) 6.9 % (0.0-13.0); NEUTROPHILS # (AUTO) 4.7 x10^3/uL (2.2-4.8); NEUTROPHILS % (AUTO) 52.4 % (42.0-75.0); PLATELET COUNT 111 X10^3/uL (150.0-450.0); RED BLOOD COUNT 3.87 X10^6/uL (3.5-5.4); RED CELL DISTRIBUTION WIDTH 13.1 % (11.6-16.5)
[2019-04-01 05:52] LABS: ALANINE AMINOTRANSFERASE 14 Units/L (12-78); ALBUMIN 2.9 g/dL (3.4-5.0); ALKALINE PHOSPHATASE 35 Units/L (46-116); ASPARTATE AMINO TRANSFERASE 14 Units/L (15-37); BLOOD UREA NITROGEN 18 mg/dL (7-18); CALCIUM 7.4 mg/dL (8.5-10.1); CARBON DIOXIDE 36.3 mmol/L (21-32); CHLORIDE 101 mmol/L (98-107); COR CA(FOR HYPOALB) 8.3 mg/dL (8.5-10.1); CREATININE 0.48 mg/dL (0.55-1.02); SODIUM 140 mmol/L (136-145); TOTAL PROTEIN 6.3 g/dL (6.4-8.2); eGFR NON BLACK RACES > 60 (>60)
--- NOTE | 2019-04-01 06:30 | RAD ---
HISTORY: Follow-up pneumonia Study: Chest AP portable Comparison: 03/31/2019, CT chest 03/29/2019 Findings: Patient is rotated to the left. The heart is enlarged. No congestive heart failure is noted. Bibasilar subsegmental atelectasis is present. Increased density remains in the retrocardiac area the left lower lobe obscuring the left hemidiaphragm. This could be on the basis of atelectasis, infiltrate, effusion or combination. No pleural effusions are identified. The bony thorax is unremarkable with the exception of severe lower thoracic dextroscoliosis. IMPRESSION: No significant change from the prior examination Reported By:
[2019-04-01] MEDS ORDERED: SOLU-Medrol 40 MG VIAL IVP ONE (08:04)
[2019-04-01] MEDS: PULMICORT NEB TX 0.5 MG NEB SCH (08:56)
[2019-04-01] MEDS ORDERED: LASIX IVP SCH (09:00)
[2019-04-01] MEDS: ROCEPHIN VIAL 1 GRAM IVP SCH (09:11)
[2019-04-01] MEDS: PROTONIX TAB 40 MG PO SCH (09:11)
[2019-04-01] MEDS: LOVENOX INJ 40 MG SYR SC SCH (09:12)
[2019-04-01] MEDS: ZOFRAN TAB 4 MG PO SCH (09:12)
[2019-04-01] MEDS: NORCO 5/325 MG TAB PO SCH (09:12)
[2019-04-01] MEDS: ASTELIN NASAL SPRAY ENOSTRIL SCH (09:13)
[2019-04-01 10:08] VITALS: BP 130/64
== END 2019-04-01 13:42 | disposition home or self-care (01) | DRG 194 ==
LOC: EDSEX 12:25 → ER 12:25 → MED/SURG 15:56
PROVIDERS: ADMIT Internal Medicine; ATTEND Internal Medicine
DX: M41.9 Scoliosis, unspecified; M54.6 Pain in thoracic spine; Z99.81 Dependence on supplemental oxygen; Z66 Do not resuscitate; R06.03 Acute respiratory distress; I67.89 Other cerebrovascular disease; J18.8 Other pneumonia, unspecified organism
CPT/HCPCS: 36415; 36600; 70450; 71010; 71020; 71045; 71046; 71260; 80053; 81001; 82550; 82553; 82803; 83735; 84484; 85025; 87040; 87070; 87205; 93005; 94640; 94760; 96365; 96374; 99221; 99231; 99284; A4222; J0696; J1650; J1940; J1956; J2920; J2930; J3475; J7030; J7050; J7626; S0119; S0181